=== PATIENT | male | born 2000 | race American Indian/Alaskan Native ===

== ENCOUNTER 2021-06-21 14:17 | Emergency (ER) | payer BC ==
[2021-06-21 15:06] VITALS: BP 106/58
--- NOTE | 2021-06-21 15:44 | Emergency Department Report ---
HPI - General Chief Complaint: Urogenital-Male Time Seen by Provider: 06/21/21 15:29 - HPI HPI: This is a 20-year-old -[place] male presents to the emergency department with a complaint of a 2 to 3-day history of bilateral scrotal and testicular p ain. Patient denies any trauma to the area. He denies any fever, dysuria, penile discharge, rash or lesions. No history of STDs. The patient does admit to having the same symptoms about 2 weeks ago. He says that he went somewhere and had an ultrasound done and was told that he had some type of a "cyst." He otherwise denies any past medical history. ED Past Medical Hx - Past Medical History Previous Medical History?: No - Surgical History Past Surgical History?: No ED Review of Systems ROS: Stated complaint: TESTICLE PAIN Other details as noted in HPI Comment: All other systems reviewed and negative Constitutional: denies: chills, fever Eyes: denies: eye pain, vision change ENT: denies: ear pain, throat pain Respiratory: denies: cough, shortness of breath Cardiovascular: denies: chest pain, palpitations Gastrointestinal: denies: abdominal pain, vomiting Genitourinary: testicular pain. denies: dysuria, hematuria, discharge Musculoskeletal: denies: back pain, arthralgia Skin: denies: rash, lesions Neurological: denies: headache, weakness Physical Exam - Physical Exam Vital Signs: Vital Signs 06/21/21 15:05 Temperature 98.2 F Pulse Rate 81 Respiratory 16 Rate Blood Pressure 106/58 [Right] O2 Sat by Pulse 99 Oximetry Physical Exam: GENERAL: The patient is well-developed well-nourished. HENT: Normocephalic. Atraumatic. Patient has moist mucous membranes. EYES: Extraocular motions are intact. NECK: Supple. Trachea is midline. CHEST/LUNGS: Clear to auscultation. There is no respiratory distress noted. HEART/CARDIOVASCULAR: Regular. There is no tachycardia. There is no murmur. ABDOMEN: Abdomen is soft, nontender. Patient has normal bowel sounds. SKIN: Skin is warm and dry. NEURO: The patient is awake, alert, and oriented. The patient is cooperative. The patient has no focal neurologic deficits. Normal speech. MUSCULOSKELETAL: There is no tenderness or deformity. There is no limitation range of motion. : There is mild bilateral scrotal and testicular tenderness to palpation. ED Course Vital Signs 06/21/21 15:05 Temperature 98.2 F Pulse Rate 81 Respiratory 16 Rate Blood Pressure 106/58 [Right] O2 Sat by Pulse 99 Oximetry ED Medical Decision Making - Radiology Data Radiology results: report reviewed [facility]TRAS[facility] INDICATION: Scrotal pain and swelling COMPARISON: None FINDINGS: No testicular masses are seen. Good blood flow is seen in both testicles with no evidence of torsion. Left epididymis appears within normal limits. The right epididymis shows a 13 mm cyst. Minimal hydroceles are seen bilaterally. IMPRESSION: No acute abnormalities are seen. Small right epididymal cyst. - Medical Decision Making This patient presents with a 2 to 3-day history of bilateral scrotal and testicular pain. On examination there is some reproducible tenderness to palpation but no significant swelling and no rash or lesions. He does not have any dysuria, penile discharge. Vital signs reassuring including being afebrile. He had a testicular ultrasound that did not show any evidence of torsion, mass, but does show a epididymal cyst. Patient will be discharged home to follow-up with urology. Critical Care Time: No Critical care attestation.: If time is entered above; I have spent that time in minutes in the direct care of this critically ill patient, excluding procedure time. ED Disposition Clinical Impression: Epididymal cyst Testicular pain Qualifiers: Laterality: bilateral Qualified Code(s): N50.811 - Right testicular pain; N50.8 12 - Left testicular pain Disposition: 01 HOME / SELF CARE / HOMELESS Is pt being admited?: No Condition: Stable Instructions: Testicular Self-Exam Additional Instructions: Please follow-up with a primary care physician in the next few days. I have given you a referral for a local urologist, Dr. Griffith, to follow-up regarding your recurrent testicular pain. Return to the emergency department with any worsening of your symptoms, new or concerning symptoms not addressed during this current emergency department visit, or with any acute distress. Referrals: ROCIO GRIFFITH MD [Staff Physician] - 3-5 Days Time of Disposition: 16:29
--- NOTE | 2021-06-21 16:27 | Ultrasound Report ---
[facility] ULTRASOUND INDICATION: Scrotal pain and swelling COMPARISON: None FINDINGS: No testicular masses are seen. Good blood flow is seen in both testicles with no evidence o f torsion. Left epididymis appears within normal limits. The right epididymis shows a 13 mm cyst. Min imal hydroceles are seen bilaterally. IMPRESSION: No acute abnormalities are seen. Small right epididymal cyst. Signer Name: Slava Gómez MD Signed: 06/21/2021 4:23 PM Workstation Name: [id number]
== END 2021-06-21 17:05 | disposition home or self-care (01) ==
LOC: ED 14:17
DX: N50.3 Cyst of epididymis (principal); N50.811 Right testicular pain
CPT/HCPCS: 93975; 99283